=== PATIENT | female | born 1980 | race Caucasian/White ===

== ENCOUNTER → 2021-12-11 12:38 | Outpatient (CLI) | payer OTHER, SELFPAY ==
--- NOTE | ~2021-12-11 | US_ITS ---
EXAMINATION: US pelvic complete DATE: 12/11/2021 12:53 INDICATION: Left lower quadrant pain TECHNIQUE: Multiple transabdominal sonographic images of the pelvis were obtained. COMPARISON: None. FINDINGS: The uterus measures 9.4 x 4.2 x 5.0 cm. The endometrial complex measures 8 mm. The right ov braden measures 3.2 x 2.5 x 2.9 cm. The left ovary measures 3.5 x 2.1 x 1.7 cm. There is normal vascular flow in the ovaries. There is no free fluid in the pelvis. IMPRESSION: 1. No sonographic correlate for the patient's symptoms. Reviewed, dictated and finalized at location B.
== END ==
PROVIDERS: PCP Nurse Practitioner; Visit Provider Nurse Practitioner
DX: R10.2 Pelvic and perineal pain (principal)
CPT/HCPCS: 76856

== ENCOUNTER → 2022-05-11 12:25 | Outpatient (CLI) | payer OTHER, SELFPAY ==
--- NOTE | ~2022-05-11 | MM_ITS ---
EXAMINATION: MM screening reji BI w leyla HISTORY: Screening mammogram TECHNIQUE: Craniocaudal and mediolateral oblique 3-D tomosynthesis images were obtained and synthetic 2-D images were generated. Bilateral rotated lateral CC views. CAD analysis was submitted and interp reted. COMPARISON: No prior mammogram is available for comparison at this institution. BREAST PARENCHYMAL COMPOSITION: The breasts are heterogeneously dense, which may obscure small masses . FINDINGS: There is no evidence of suspicious mass, calcification, or architectural distortion to sugg est malignancy in either breast. There has been no suspicious interval change. IMPRESSION: 1. No mammographic evidence of malignancy. 2. Recommend routine screening mammography in one year. BI-RADS Category 1: Negative Reviewed, dictated and finalized at location A. O BRACER
== END ==
PROVIDERS: PCP Nurse Practitioner; Visit Provider Nurse Practitioner
DX: Z12.31 Encounter for screening mammogram for malignant neoplasm of breast (principal)
CPT/HCPCS: 77063; 77067

== ENCOUNTER 2022-06-29 12:25 | Emergency (ER) | payer OTHER, SELFPAY ==
[2022-06-29 12:41] VITALS: BP 140/85; PULSE 88; RESP 18; TEMP 36.1; O2SAT 100
--- NOTE | 2022-06-29 12:57 | ED.URI ---
HPI - URI/Sore Throat General Chief Complaint: Upper Respiratory Infection Stated Complaint: sinus pressure/pain,hoarse Source: patient Mode of arrival: ambulatory Limitations: no limitations History of Present Illness HPI Narrative: 42-year-old female presents to [facility] with complaints of/pressure, nasal congestion, cough and runny nose for the past week. Patient has been taking [id number] Tylenol, Motrin and Sudafed with minimal relief. Patient reports that her son recently had a double ear infection. Patient denies recent trauma. Patient has shortness of breath, wheezing, nausea, vomiting or diarrhea MD elicited complaint: rhinorrhea, nasal congestion and sinus pain Onset (ago): week(s) (1) Able to tolerate fluids by mouth: Yes Relieving factors: nothing Treatments prior to arrival: acetaminophen, ibuprofen and cold medicine Related Data Allergies Allergy/AdvReac Type Severity Reaction Status Date / Time No Known Allergies Allergy Verified 06/29/22 12:38 Review of Systems Constitutional: Constitutional: Denies chills, Denies fatigue, Denies fever(s) and Denies weakness ENT: Denies vertigo, Denies dizziness, Denies epistaxis, Reports nasal congestion and Reports sore throat Comments: Sinus pressure Cardiovascular: Cardiovascular: Denies chest pain Respiratory: Respiratory: Reports cough, Denies dyspnea and Denies wheezing Gastrointestinal: Gastrointestinal: Denies diarrhea, Denies nausea and Denies vomiting Integumentary/Breasts: Skin/Breast: Denies rash Neurologic: Denies dizziness, Denies syncope and Denies headache(s) PMFSH Comments At time of signature, I agree with nursing past medical, surgical, social and family history. There is no relevant family history pertinent to the presenting complaint. Exam Const: General: healthy appearing and no acute distress Nutritional Appearance: well nourished Orientation/consciousness: patient oriented x3 Limitations: no limitations HENMT: Head: normal to inspection Ears: external ears normal, TM's normal bilaterally and EAC's normal Face/Nose/Sinus: Normal nares present Face and sinus: sinus tenderness frontal Mouth: Yes moist mucous membranes Teeth and gingiva: dentition normal Throat: posterior oropharynx normal and uvula midline Other: Moderate nasal congestion noted Eyes: Conjunctivae: conjunctivae normal Neck: Neck: normal visual inspection Resp: Effort & Inspection: normal respiratory effort and not labored Auscultation: clear to auscultation bilaterally, no crackles, no rales and no rhonchi Cardio: Rate: regular rate Rhythm: regular rhythm Heart sounds: no murmurs Skin: General skin exam: normal color Rashes: no rashes Neuro: General: patient oriented x3 Speech: normal speech Psych: Affect: normal affect Attitude: cooperative Course Course Level of Care: Express Care Visit Vital Signs Vital signs: Vital Signs Temperature 36.1 C L 06/29/22 12:41 Pulse Rate 88 06/29/22 12:41 Respiratory Rate 18 06/29/22 12:41 Blood Pressure 140/85 06/29/22 12:41 Pulse Oximetry 100 06/29/22 12:41 Oxygen Delivery Room Air 06/29/22 12:41 Temperature 36.1 C L 06/29/22 12:41 Pulse Rate 88 06/29/22 12:41 Respiratory Rate 18 06/29/22 12:41 Blood Pressure 140/85 06/29/22 12:41 Pulse Oximetry 100 06/29/22 12:41 Oxygen Delivery Room Air 06/29/22 12:41 MDM - URI/Sore Throat MDM Narrative Medical decision making narrative: Patient agrees to take Flonase daily and Augmentin as prescribed. Instructed patient to alternate Motrin and Tylenol as needed and to follow up with primary care provider if symptoms not improved Differential Diagnosis Differential diagnosis: Likely otitis media, sinusitis and viral infection Critical Care Time Critical Care Time Critical Care Time: No Discharge Plan Discharge Clinical Impression: Sinusitis Patient Disposition: Home, Self-Care Condition: Stable
== END 2022-06-29 12:54 | disposition home or self-care (01) ==
PROVIDERS: Emergency Provider Nurse Practitioner Family
DX: J32.9 Chronic sinusitis, unspecified (principal)
CPT/HCPCS: 99213; G0463

== ENCOUNTER 2023-06-17 09:03 | Emergency (ER) | payer OTHER, SELFPAY ==
[2023-06-17 09:17] VITALS: BP 146/92; PULSE 72; RESP 18; TEMP 36.2; O2SAT 97
--- NOTE | 2023-06-17 09:18 | ED.URI ---
HPI - URI/Sore Throat General Chief Complaint: Upper Respiratory Infection Stated Complaint: sinus congestion and pressure Time Seen by Provider: 06/17/23 09:18 Source: patient Mode of arrival: ambulatory Limitations: no limitations History of Present Illness HPI Narrative: Lila is a 43-year-old female patient presenting to the clinic today with complaints of sinus congestion, dental pain, and left maxillary pressure x6 days. She reports she lost her feeling on Wednesday to the left upper tooth. Reports she is supposed to see the dentist today to have that report repaired MD elicited complaint: sore throat and nasal congestion Related Data Allergies Allergy/AdvReac Type Severity Reaction Status Date / Time No Known Allergies Allergy Verified 06/17/23 09:23 Review of Systems Review of Systems: Pertinent positives per HPI. Patient denies any fever, chills, rash, visual changes, dizziness, cough, shortness of breath, chest pain, palpitations, nausea, vomiting, diarrhea, constipation, abdominal pain, or any urinary issues. PMFSH Past Medical History Medical History (Updated 06/17/23 @ 09:28 by Yannick Navarro APRN) Depression with anxiety Family History Family History (Updated 06/07/23 @ 09:37 by Karina Chauhan PA-C) Father Cancer CLL, 2020 Mother Skin cancer Sibling Depression Grandparent Heart disease Cerebrovascular accident Hypertension Skin cancer Carcinoma of colon Social History Social History (Updated 06/07/23 @ 09:45 by Karina Chauhan PA-C) Smoking status: Former smoker Second hand tobacco smoke exposure: No Smoking end date: 04/19/21 Alcohol intake: current Drinks per week: 10 Alcohol use details: wine daily Substance use: never Substance use type: does not use Do You Feel Safe in your Home?: Yes Lack of Transportation: No Lack of Food: Never True Current Housing: I Have Housing Concerned About Future Housing: No Difficulty Paying Gas/Electric Bills: No Difficulty Paying for Meds: No Living arrangements: alone Gender identity (if verbalized by the patient): Female Sexual Orientation (if Verbalized by the Patient): Straight or Heterosexual Comments At the time of my signature, I reviewed and agree with the nursing past medical, surgical, social, and family history. There is no relevant family history pertinent to the patient complaint. Exam Narrative: General: Well-developed, well nourished, in no apparent distress Head: Normocephalic, atraumatic Eyes: Pupils equally round and reactive to light bilaterally, EOM intact, sclera and conjunctive clear, no discharge, lids normal Ears: TMs intact and congested, ear canals clear, no drainage, grossly hearing normal. Nose: Nares patent, yellow nasal discharge, moderate inflammation, maxilla sinus tenderness. Mouth: Oral pharynx without lesions or masses, poor dentition, MMM. Decayed left #13 tooth with gingival swelling Neck: Supple, trachea midline, no enlargement of anterior or posterior cervical nodes, no thyroid masses or goiter palpable. Cardio: Regular rate and rhythm, s1 and s2 normal, no murmur appreciated. Resp: Clear to auscultation bilaterally, no rhonchi, rales, wheezing or rubs Course Course Emergency Course: Portions of this record may have been created with voice recognition software. Level of Care: Express Care Visit Vital Signs Vital signs: Vital signs reviewed MDM - URI/Sore Throat MDM Narrative Medical decision making narrative: At the time of visit patient is resting comfortably on the exam table. Patient appears to be nontoxic. Plan: I suspect patient has sinusitis/toothache. Prescription for amoxicillin, prednisone, and Diflucan was sent to the pharmacy. Supportive measures were discussed with the patient and they voiced understanding discharge instructions and agrees to treatment plan. Return precautions reviewed Differentia
== END 2023-06-17 09:33 | disposition home or self-care (01) ==
PROVIDERS: Emergency Provider Nurse Practitioner Family; PCP Family Medicine
DX: J01.90 Acute sinusitis, unspecified (principal); K08.89 Other specified disorders of teeth and supporting structures; Z87.891 Personal history of nicotine dependence
CPT/HCPCS: 99213; G0463

== ENCOUNTER 2023-09-06 11:23 | Outpatient (CLI) | payer OTHER, SELFPAY ==
--- NOTE | ~2023-09-06 | MM_ITS ---
EXAMINATION: MM screening reji BI w leyla HISTORY: Screening TECHNIQUE: Craniocaudal and mediolateral oblique 3-D tomosynthesis images were obtained and synthetic 2-D images were generated. CAD analysis was submitted and interpreted. COMPARISON: 05/11/2019 BREAST PARENCHYMAL COMPOSITION: Dense: The breasts are heterogeneously dense, which may obscure small masses FINDINGS: There is no evidence of suspicious mass, calcification, or architectural distortion to sugg est malignancy in either breast. There has been no suspicious interval change. IMPRESSION: 1. No mammographic evidence of malignancy. 2. Recommend routine screening mammography in one year. BI-RADS Category 1: Negative Reviewed, dictated and finalized at location A.
== END 2023-09-06 11:24 ==
LOC: MICIMG 11:24
PROVIDERS: PCP Nurse Practitioner; Visit Provider Nurse Practitioner
DX: Z12.31 Encounter for screening mammogram for malignant neoplasm of breast (principal)
CPT/HCPCS: 77063; 77067

== ENCOUNTER 2023-09-17 14:52 | Emergency (ER) | payer OTHER, SELFPAY ==
[2023-09-17 15:00] VITALS: BP 128/97; PULSE 112; RESP 19; TEMP 37.4; O2SAT 100
--- NOTE | 2023-09-17 15:44 | ED.URI ---
HPI - URI/Sore Throat General Chief Complaint: Upper Respiratory Infection Stated Complaint: Sore Throat Time Seen by Provider: 09/17/23 15:22 Source: patient and RN notes reviewed Mode of arrival: ambulatory Limitations: no limitations History of Present Illness HPI Narrative: Patient presents today complaining of 3 day history of sore throat that is a since onset. She reports today that she is having some difficulty swallowing food while eating. Still able to swallow fluids, both with increased pain. She currently rates her pain 8/10. She took a dose of Tylenol cold and flu this morning at 8:30 a.m., but nothing since then. Denies any additional symptoms to include congestion, rhinorrhea, cough, fever Related Data Home Medications Medication Instructions Recorded Confirmed No Home Medications 09/17/23 09/17/23 Allergies Allergy/AdvReac Type Severity Reaction Status Date / Time No Known Allergies Allergy Verified 09/17/23 15:26 Review of Systems Review of Systems: CONSTITUTIONAL: Denies body aches, fever, chills, or sweats. EYES: Denies visual changes, redness, or discharge. ENT: Denies rhinorrhea, congestion, or otalgia.+ sore throat, difficulty swallowing food CARDIOVASCULAR: Denies chest pain, palpitations, or edema. RESPIRATORY: Denies cough or dyspnea. GASTROINTESTINAL: Denies abdominal pain, nausea, vomiting, or diarrhea. GENITOURINARY: Denies dysuria or hematuria. SKIN: Denies rash, itching, or wounds. MUSCULOSKELETAL: Denies back pain, joint pain, or myalgia. NEUROLOGIC: Denies headache, numbness, tingling, or weakness. PSYCH: Denies depression or anxiety. [facility] Past Medical History Medical History Depression with anxiety Family History Family History Father Cancer CLL, 2020 Mother Skin cancer Sibling Depression Grandparent Heart disease Cerebrovascular accident Hypertension Skin cancer Carcinoma of colon Social History Social History Smoking status: Former smoker Second hand tobacco smoke exposure: No Smoking end date: 04/19/21 Alcohol intake: current Drinks per week: 10 Alcohol use details: wine daily Substance use: never Substance use type: does not use Do You Feel Safe in your Home?: Yes Lack of Transportation: No Lack of Food: Never True Current Housing: I Have Housing Concerned About Future Housing: No Difficulty Paying Gas/Electric Bills: No Difficulty Paying for Meds: No Living arrangements: alone Gender identity (if verbalized by the patient): Female Sexual Orientation (if Verbalized by the Patient): Straight or Heterosexual Comments At time of signature, I have reviewed and agree with nursing past medical, surgical, social and family history unless otherwise noted. Please see nursing chart for further information. There is no relevant family history pertinent to the presenting complaint Exam Narrative: GENERAL: Well-appearing, well-nourished, and in no acute distress. HEAD: Normocephalic, atraumatic. EYES: EOMI. No redness or drainage. Conjunctivae normal. ENT: Mucous membranes pink and moist. Nares clear. No rhinorrhea. TMs normal bilaterally. Throat erythematous. Tonsils edematous, right greater than left. She does have some swelling of the right-sided soft palate as well. No exudate noted NECK: Normal AROM. Supple. CHEST: No respiratory distress. Clear to auscultation. HEART: Regular rate and rhythm. No murmur appreciated. EXTREMITIES: Normal range of motion. No edema. SKIN: Warm, dry, no rash. Capillary refill normal. Normal skin turgor. NEURO: No focal deficits. Alert and oriented x3. Gait steady. PSYCH: Normal affect. No signs of depression or anxiety. Course Course Level of Care: Express Care Vi
== END 2023-09-17 15:45 | disposition short-term general hospital (02) ==
PROVIDERS: Emergency Provider Nurse Practitioner
DX: J02.0 Streptococcal pharyngitis (principal); R13.10 Dysphagia, unspecified; Z87.891 Personal history of nicotine dependence
CPT/HCPCS: 87880; 99212; G0463

== ENCOUNTER 2023-09-17 16:42 | Emergency (ER) | payer OTHER, SELFPAY ==
--- NOTE | ~2023-09-17 | CT_ITS ---
EXAMINATION: CT soft tissue neck w con DATE: 09/17/2023 18:01 INDICATION: TECHNIQUE: Computed tomography (CT) of the neck was performed with 75 mL Omnipaque-350 intravenous co ntrast. The dose-length product was 412.60 mGy-cm. COMPARISON: None FINDINGS: Soft tissue swelling involving the right palatine tonsil and posterior right oropharyngeal soft tissu es with an associated 1.5 cm hypodensity with surrounding enhancement. The thyroid gland is unremark able. Slight enlargement of the right submandibular gland. Symmetric parotid glands. Enlarged uppe r anterior right cervical chain lymph nodes. The superior mediastinum is unremarkable. The airway is unremarkable. Parapharyngeal and pre-glottic fat planes are preserved. Normally enhancing neck v essels. Right maxillary retention cyst/polyp and mucosal thickening, the remaining aerated spaces a re clear.Visualized lung parenchyma is clear. No significant osseous abnormality. IMPRESSION: Right palatine tonsillar and posterior right oropharyngeal soft tissue swelling with associated 1.5 c m tonsillar or peritonsillar abscess. Right upper anterior cervical lymphadenopathy. Reviewed, dictated and finalized at location K. IMPRESSION: Right palatine tonsillar and posterior right oropharyngeal soft tissue swelling with associated 1.5 cm tonsillar or peritonsillar abscess. Right upper anterior cervical lymphadenopathy.
[2023-09-17 16:44] VITALS: BP 168/86; PULSE 100; RESP 20; TEMP 36.9; O2SAT 100
--- NOTE | 2023-09-17 17:26 | ED.GENADULT ---
HPI - General Adult General Chief complaint: Unspecified Stated complaint: peritonsillar abscess Time Seen by Provider: 09/17/23 17:05 Source: patient Mode of arrival: ambulatory Limitations: no limitations History of Present Illness HPI narrative: This is a 43-year-old female who presents to the ED with chief complaint sore throat x2 days. She was referred over from urgent care today for likely a peritonsillar abscess. She had positive strep test there. Patient reports that swallowing foods is quite difficult and painful. She can swallow liquids but states that she has been swallowing some increased oral secretions. Denies any known fevers. Denies nausea, vomiting, shortness of breath, cough, chest pain, headache. Related Data Allergies Allergy/AdvReac Type Severity Reaction Status Date / Time No Known Allergies Allergy Verified 09/17/23 15:26 Review of Systems Review of Systems: All systems as dictated in [facility] Past Medical History Medical History Depression with anxiety Family History Family History Father Cancer CLL, 2020 Mother Skin cancer Sibling Depression Grandparent Heart disease Cerebrovascular accident Hypertension Skin cancer Carcinoma of colon Social History Social History Smoking status: Former smoker Second hand tobacco smoke exposure: No Smoking end date: 04/19/21 Alcohol intake: current Drinks per week: 10 Alcohol use details: wine daily Substance use: never Substance use type: does not use Do You Feel Safe in your Home?: Yes Lack of Transportation: No Lack of Food: Never True Current Housing: I Have Housing Concerned About Future Housing: No Difficulty Paying Gas/Electric Bills: No Difficulty Paying for Meds: No Living arrangements: alone Gender identity (if verbalized by the patient): Female Sexual Orientation (if Verbalized by the Patient): Straight or Heterosexual Exam Narrative: GENERAL: Well-appearing, well-nourished, and in no acute distress. HEAD: Normocephalic, atraumatic. EYES: PERRLA and EOMI. ENT: Significant right tonsillar swelling and erythema with uvula deviation to the left. Muffled voice. Tolerating secretions. Airway intact. Nares clear, no rhinorrhea or epistaxis. Mucous membranes moist. Tenderness to the right side of the neck. NECK: Supple. No adenopathy or masses. CHEST: No respiratory distress. Clear to auscultation. No wheezes rales or rhonchi HEART: Regular rate and rhythm. No murmur heard. Normal peripheral pulses. ABDOMEN: Soft, nontender, nondistended, normal active bowel sounds. MSK: Normal range of motion. No edema. SKIN: Warm, dry, no rash. NEURO: Alert and oriented x3. No focal deficits. PSYCH: Normal mood and affect. Course Reevaluation(s) Reevaluation #1: Patient is feeling much improved overall. I discussed the conversation I had with [facility] ENT. She does prefer to go home if able to. I did offer for transfer for admission if she is feeling unwell and preferred to stay in the hospital. She is understanding of this, however feels that she is able to swallow better now and would do well at home. She would feel comfortable going home with strict return precautions. Date: 09/17/23 Time: 19:31 Consultations Consultation #1: Spoke with Dr. Morrow (ENT, [facility]): We discussed the imaging results and laboratory results. Based on patient's presentation, he feels that the patient is stable enough to go home on oral antibiotics. He would recommend Augmentin times 10 days. States that if the patient is feeling uncomfortable with plan for going home that they will discuss admitting to [facility] hospital. Date: 09/17/23 Time: 19:15 Vital Signs Vital signs: Vital Signs Temperature 98.5 F
[2023-09-17 17:56] LABS: Estimated CRCL calculation 96 ml/min; Estimated Glomerular Filt Rate > 60
[2023-09-17] MEDS: SODIUM CHLORIDE 0.9% IV 1,000 ML 999 ML IV CONT (18:02)
[2023-09-17 18:03] LABS: Basophils Absolute Auto 0.1 K/mm3 (0.0-0.1); Basophils Percent Auto 0.4 % (0.2-1.2); Eosinophils Absolute Auto 0.1 K/mm3 (0-0.3); Eosinophils Percent Auto 0.4 % (0-4.4); Hematocrit 45.9 % (37.0-47.0); Hemoglobin 15.7 g/dL (12.0-15.0); Immature Granulocyte Absolute 0.05 K/mm3 (0.00-0.031); Immature Granulocyte Percent A 0.4 % (0-0.5); Lymphocytes Absolute Auto 1.46 K/mm3 (0.9-3.2); Lymphocytes Percent Auto 10.3 % (18.3-44.2); Mean Corpuscular HGB Conc 34.2 g/dl (32-36); Mean Corpuscular Hemoglobin 33.1 pg (26-34); Mean Corpuscular Volume 96.6 fl (80-100); Mean Platelet Volume 11.4 fl (7.4-10.4); Monocytes Absolute Auto 1.1 K/mm3 (0.1-0.6); Monocytes Percent Auto 7.5 % (2.6-8.5); Neutrophils Absolute Auto 11.5 K/mm3 (1.3-6.7); Platelet Count Result 210 k/mm3 (150-375); Red Blood Count 4.75 M/mm3 (4.2-5.4); Red Cell Distribution Width 11.9 % (11.5-14.5); White Blood Count 14.2 K/mm3 (4.5-10.0)
[2023-09-17] MEDS: AMPICILLIN SULB 3 GM/NS 100 ML 3 GM/100 ML VIAL IVPB (18:03)
[2023-09-17] MEDS: KETOROLAC 15 MG/ML VIAL (*BKC) IV PUSH (18:03)
[2023-09-17] MEDS: methylPREDNISolone SOD SUCC 125 MG VIAL IV PUSH (18:03)
[2023-09-17 18:17] LABS: Alanine Aminotransferase 20 U/L (6-35); Albumin Level 5.1 g/dL (3.5-5.1); Alkaline Phosphatase 92 U/L (38-126); Anion Gap 12 mmol/L (4-12); Aspartate Amino Transferase 28 U/L (14-36); Blood Urea Nitrogen 10 mg/dL (7-17); CRP 4.1 mg/dL (<1.0); Calcium 10.2 mg/dL (8.4-10.2); Carbon Dioxide 21 mmol/L (22-30); Chloride 103 mmol/L (98-107); Estimated CRCL calculation 110 ml/min; Estimated Glomerular Filt Rate > 60; Glucose 86 mg/dL (65-110); Potassium 3.7 mmol/L (3.4-5.0); Sodium 136 mmol/L (137-145)
[2023-09-17 18:51] VITALS: BP 149/86; PULSE 98; RESP 16; O2SAT 98
== END 2023-09-17 19:52 | disposition home or self-care (01) ==
PROVIDERS: Emergency Provider Physician Assistant
DX: J36 Peritonsillar abscess (principal); Z87.891 Personal history of nicotine dependence
CPT/HCPCS: 36415; 70491; 80053; 85025; 86140; 87880; 96365; 96366; 96375; 99284; J0295; J1885; J2919; J7030; Q9967

== ENCOUNTER 2023-12-14 09:19 | Emergency (ER) | payer OTHER, SELFPAY ==
[2023-12-14 09:37] VITALS: BP 137/87; PULSE 88; RESP 16; TEMP 36.6; O2SAT 100
--- NOTE | 2023-12-14 09:58 | ED.URI ---
HPI - URI/Sore Throat General Chief Complaint: Upper Respiratory Infection Stated Complaint: sore throat Time Seen by Provider: 12/14/23 09:58 Source: patient, RN notes reviewed and old records reviewed Mode of arrival: ambulatory Limitations: no limitations History of Present Illness HPI Narrative: 43-year-old female presents to the [facility] with complaints of a sore throat. Patient reports waking up this morning with laryngitis and a sore throat. No treatment prior to arrival Onset (ago): hour(s) (3) Treatments prior to arrival: none Related Data Home Medications Medication Instructions Recorded Confirmed No Home Medications 12/14/23 12/14/23 Allergies Allergy/AdvReac Type Severity Reaction Status Date / Time No Known Allergies Allergy Verified 12/14/23 09:35 Review of Systems Review of Systems: All systems reviewed & are unremarkable except as noted in HPI and below Constitutional: Constitutional: Reports no additional constitutional complaints Eyes: Eyes: Reports no additional eye complaints ENT: Reports as per HPI and Reports sore throat Cardiovascular: Cardiovascular: Reports no additional cardiovascular complaints, Denies chest pain and Denies dyspnea Respiratory: Respiratory: Reports no additional respiratory complaints, Denies chest congestion, Denies cough and Denies dyspnea Gastrointestinal: Gastrointestinal: Reports no additional gastrointestinal complaints, Denies abdominal pain, Denies nausea and Denies vomiting Musculoskeletal: Musculoskeletal: Reports no additional musculoskeletal complaints Integumentary/Breasts: Skin/Breast: Reports system reviewed and no additional complaints, except as docu Neurologic: Reports system reviewed and no additional complaints, except as documented Psychiatric: Psychiatric: Reports no additional psychiatric complaints Allergic/Immunologic: Allergic/Immunologic: Reports no additional allergic/immunologic complaints PMFSH Past Medical History Medical History Depression with anxiety Family History Family History Father Cancer CLL, 2020 Mother Skin cancer Sibling Depression Grandparent Heart disease Cerebrovascular accident Hypertension Skin cancer Carcinoma of colon Social History Social History Smoking status: Former smoker Second hand tobacco smoke exposure: No Smoking end date: 04/19/21 Alcohol intake: current Drinks per week: 10 Alcohol use details: wine daily Substance use: never Substance use type: does not use Do You Feel Safe in your Home?: Yes Lack of Transportation: No Lack of Food: Never True Current Housing: I Have Housing Concerned About Future Housing: No Difficulty Paying Gas/Electric Bills: No Difficulty Paying for Meds: No Living arrangements: alone Gender identity (if verbalized by the patient): Female Sexual Orientation (if Verbalized by the Patient): Straight or Heterosexual Comments At the time of my signature, I reviewed and agree with the nursing past medical, surgical, social, and family history. There is no relevant family history pertinent to the patient complaint. Exam Const: General: cooperative, healthy appearing, comfortable, no acute distress, well developed, alert and well nourished Nutritional Appearance: well nourished Orientation/consciousness: patient oriented x3 Limitations: no limitations HENMT: Head: normal to inspection Ears: hearing grossly normal bilaterally, external ears normal, TM's normal bilaterally, EAC's normal, mastoids normal and no periauricular adenopathy Face/Nose/Sinus: Normal external nose present, Normal nares present, Normal nasal mucous membranes and turbinates present, normal facial exam and face symmetric Face and sinus: normal facial exam and face sy
[2023-12-14 10:12] LABS: EDSTREPNEGPOS1 Negative
== END 2023-12-14 10:11 | disposition home or self-care (01) ==
PROVIDERS: Emergency Provider Nurse Practitioner
DX: J02.9 Acute pharyngitis, unspecified (principal); Z87.891 Personal history of nicotine dependence
CPT/HCPCS: 87081; 87880; 99213; G0463

== ENCOUNTER 2024-10-19 16:19 | Emergency (ER) | payer OTHER, SELFPAY ==
--- NOTE | ~2024-10-19 | CT_ITS ---
EXAMINATION: CT brain wo con DATE: 10/19/2024 16:59 INDICATION: Headache. Syncope. TECHNIQUE: Computed tomography (CT) of the head was performed without intravenous contrast. Sagittal and coronal reconstructions were performed. The mA was adjusted according to patient size. Iterative reconstruction technique was employed. The dose-length product was 605.33 mGy-cm. COMPARISON: None FINDINGS: No acute intracranial hemorrhage, acute infarction or abnormal extra axial fluid collection. Ventricl es are normal and symmetric. No mass/mass effect. The orbits, paranasal sinuses and mastoid air cells are normal. IMPRESSION: 1. Normal head CT. Reviewed, dictated and finalized at location B. IMPRESSION: 1. Normal head CT.
--- NOTE | ~2024-10-19 | XR_ITS ---
CHEST RADIOGRAPH, PA AND LATERAL CLINICAL HISTORY: syncopy . COMPARISON: None TECHNIQUE: PA and lateral views of the chest. FINDINGS The cardiomediastinal silhouette is unremarkable. The lungs are clear. IMPRESSION: No focal infiltrate or effusion. Reviewed, dictated and finalized at location A.
--- NOTE | 2024-10-19 16:24 | ECG_ITS ---
Test Date: 2024-10-19 16:44:49 Measurements Intervals [place] Rate: 74 P: 48 AK: 148 QRS: 48 QRSD: 90 T: 61 QT: 379 QTc: 421 Interpretive Statements SINUS RHYTHM No previous ECG available for comparison Electronically Signed On 10-19-2024 16:55:33 CDT by Sharon Castellon
[2024-10-19 16:25] VITALS: BP 140/86; PULSE 84; RESP 16; TEMP 36.8; O2SAT 98
[2024-10-19 16:32] VITALS: PULSE 84
[2024-10-19 16:45] VITALS: BP 141/76; PULSE 81; RESP 16; O2SAT 100
[2024-10-19 17:30] LABS: Hematocrit 44.0 % (37.0-47.0); Hemoglobin 14.7 g/dL (12.0-15.0); Immature Granulocyte Percent A 0.3 % (0-0.5); Lymphocytes Absolute Auto 1.05 K/mm3 (0.9-3.2); Mean Corpuscular HGB Conc 33.4 g/dl (32-36); Mean Corpuscular Hemoglobin 32.6 pg (26-34); Mean Corpuscular Volume 97.6 fl (80-100); Nucleated Red Blood Cells Absolute Auto 0.000 K/mm3 (0.0-0.012); Nucleated Red Blood Cells Perc 0.0 % (0.0-0.2); Platelet Count Result 221 k/mm3 (150-375); Red Blood Count 4.51 M/mm3 (4.2-5.4); White Blood Count 10.1 K/mm3 (4.5-10.0)
[2024-10-19 17:42] LABS: Alanine Aminotransferase 30 U/L (6-35); Albumin Level 4.9 g/dL (3.5-5.1); Alkaline Phosphatase 63 U/L (38-126); Anion Gap 11 mmol/L (4-12); Aspartate Amino Transferase 47 U/L (14-36); Bilirubin,Total 1.0 mg/dL (0.2-1.3); Blood Urea Nitrogen 11 mg/dL (7-17); Calcium 9.3 mg/dL (8.4-10.2); Carbon Dioxide 22 mmol/L (22-30); Chloride 101 mmol/L (98-107); Estimated CRCL calculation 92 ml/min; Estimated Glomerular Filt Rate > 60; Glucose 85 mg/dL (65-110); Potassium 3.3 mmol/L (3.4-5.0); Sodium 134 mmol/L (137-145); Total Protein 8.4 g/dL (6.3-8.2)
[2024-10-19 18:00] VITALS: BP 145/83; PULSE 75; RESP 16; O2SAT 100
[2024-10-19 18:43] LABS: BEDSIDEPREGUCG Negative (Negative)
[2024-10-19 18:45] VITALS: BP 145/73; PULSE 76; RESP 16; O2SAT 100
[2024-10-19] MEDS: ACETAMINOPHEN 500 MG TABLET 1000 MG PO (20:45)
[2024-10-19] MEDS: IBUPROFEN 600 MG TABLET PO (20:45)
[2024-10-19] MEDS: LIDOCAINE 5% PATCH 1 PATCH TRANSDERM (20:46)
[2024-10-19] MEDS: oxyCODONE HCL (*CRX) 2.5 MG TAB IR PO (20:46)
--- NOTE | 2024-10-19 20:53 | ED_ITS ---
HPI - Syncope General Chief Complaint: Syncope Stated Complaint: syncope Time Seen by Provider: 10/19/24 19:35 History of Present Illness HPI narrative: 44-year-old otherwise healthy female presenting to the emergency department after potential seizure activity at a grocery store. She was otherwise in her normal state of health but felt odd while she was walking to the grocery store and felt like her vision was going to give out and then she fell to the ground with bystanders reporting seizure-like activity. Lasted for several seconds and she had a prolonged postictal phase approximately 30 minutes before waking up back to her normal baseline self. No history of seizures in the past, no trauma preceding the seizure, no recent illnesses. She states she was going better day normally and was swimming earlier this afternoon without any difficulty. No history of febrile seizures in childhood. She is asymptomatic at this time aside from some right-sided chest discomfort as well as a headache. She has no tongue lesions or bites. Does not take any prescription medications aside for her antidepressants which have not changed recently. No drinking or drug use. She was otherwise healthy. Related Data Allergies Allergy/AdvReac Type Severity Reaction Status Date / Time No Known Allergies Allergy Verified 10/19/24 16:39 Review of Systems 2 Review of Systems: As reviewed above in HPI [facility] Past Medical History Medical History Depression with anxiety Family History Family History Father Cancer CLL, 2020 Mother Skin cancer Sibling Depression Grandparent Heart disease Cerebrovascular accident Hypertension Skin cancer Carcinoma of colon Social History Social History Smoking status: Former smoker Second hand tobacco smoke exposure: No Smoking end date: 04/19/21 Alcohol intake: current Drinks per week: 10 Alcohol use details: wine daily Substance use: never Substance use type: does not use Do You Feel Safe in your Home?: Yes Lack of Transportation: No Lack of Food: Never True Current Housing: I Have Housing Concerned About Future Housing: No Difficulty Paying Gas/Electric Bills: No Difficulty Paying for Meds: No Living arrangements: alone Gender identity (if verbalized by the patient): Female Sexual Orientation (if Verbalized by the Patient): Straight or Heterosexual Exam 2 Narrative: GENERAL: [Well-appearing, well-nourished, and in no acute distress.] HEAD: [Normocephalic, atraumatic.] EYES: [PERRLA and EOMI.] ENT: Nares clear, no rhinorrhea or epistaxis. Mucous membranes moist. NECK: Supple. CHEST: [Clear to auscultation. No respiratory distress.] HEART: [Regular rate and rhythm]. No murmur heard. [Normal peripheral pulses.] ABDOMEN: [Soft, nondistended], [nontender], [No rigidity or guarding] EXTREMITIES: Normal range of motion. [No edema.] SKIN: Warm, dry, no rash. NEURO: [No focal deficits]. Alert and oriented [x3.] PSYCH: [Normal mood and affect.] Course Vital Signs Vital signs: Vital Signs Temperature 36.8 C 10/19/24 16:25 Pulse Rate 84 10/19/24 16:25 Respiratory Rate 16 10/19/24 16:25 Blood Pressure 140/86 10/19/24 16:25 Pulse Oximetry 98 10/19/24 16:25 Temperature 36.8 C 10/19/24 16:25 Pulse Rate 74 10/19/24 21:22 Respiratory Rate 16 10/19/24 21:22 Blood Pressure 144/72 H 10/19/24 21:22 Pulse Oximetry 100 10/19/24 21:22 MDM - Syncope MDM Narrative Medical decision making narrative: 44-year-old female presenting after suspected seizure. She has no history of seizures no history of febrile seizures in childhood. Historically she has elements that are consistent with seizure today even though she has no history of it. She was walking in a grocery store when she felt an aura proceeded by headache and loss of consciousness with shaking. She had 30 minutes of generalized confusion and malaise before becoming back to normal self. No trauma or injury but she is complain of some right-sided chest discomfort potentially from falling to the ground. No blood thinner use. No fevers. She was otherwise healthy. She is unremarkable set of vitals here without any significant blood pressure concerns, tachycardia, fever, hypoxia. She has an unremarkable neurological assessment. Potential other causes such as the syncope, vasovagal event, orthostatic event less likely given the postictal phase and confusion report afterwards per potentially hit her head and have a concussion or intraparenchymal process or bleed possible as well. Workup was ordered including a CT of the head, chest x-ray, test, CBC, CMP, EKG. She was given Tylenol for analgesia prior to imaging and then afterwards was given Motrin, lidocaine patch, oxycodone. Workup shows no significant leukocytosis or anemia. Normal platelet count. Electrolytes are largely unremarkable aside from some minor hypokalemia 3.3 but not significant this is just below normal. Normal creatinine, normal LFTs. No anion gap or acidosis noted. LFTs largely unremarkable. test negative. Chest x-ray with no infiltrate or effusion. CT of the head without any findings. EKG shows sinus rhythm without any ectopy or dysrhythmia. Patient's potential seizure activity occurred at about 330-345pm. and she has been observed here for numerous hours in the emergency depart without any recurrent syncope or seizure-like activity. I discussed the potential causes of her presentation and I am concerned that she did have a seizure today for the 1st time. We counseled her on next steps including outpatient neurology evaluation and starting her on any antiepileptic medication here as we do not have a neurologist to see here in the ED. patient was comfortable starting medication and we discussed Keppra without side effect profile being minimal and will have her establish with Neurology outpatient. She was also given strict return precautions, told not to drive until cleared by Neurology or 6 months seizure-free and to return if she has any recurrent episodes or any new or worsening concerns. Patient and family were very comfortable with this plan as she has been seizure-free for the duration of her time here in the emergency department. She was given 500 mg p.o. Keppra home be discharged with that twice a day until seen by Neurology. Medical Records Attestation: I reviewed the patient's medical records. Lab Data Attestation: I reviewed the patient's lab results. 10/19/24 17:23 10/19/24 17:23 Labs: Lab Results 10/19/24 10/19/24 Range/Units 17:23 18:00 WBC 10.1 H (4.5-10.0) K/mm3 RBC 4.51 (4.2-5.4) M/mm3 Hgb 14.7 (12.0-15.0) g/dL Hct 44.0 (37.0-47.0) % MCV 97.6 (80-100) fl MCH 32.6 (26-34) pg MCHC 33.4 (32-36) g/dl RDW 12.4 (11.5-14.5) % Plt Count 221 (150-375) k/mm3 MPV 11.0 H (7.4-10.4) fl Immature Gran % (Auto) 0.3 (0-0.5) % Neut % (Auto) 82.9 H (45.5-73.1) % Lymph % (Auto) 10.4 L (18.3-44.2) % Clare % (Auto) 5.3 (2.6-8.5) % Eos % (Auto) 0.6 (0-4.4) % Baso % (Auto) 0.5 (0.2-1.2) % Lymph # (Auto) 1.05 (0.9-3.2) K/mm3 Clare # (Auto) 0.5 (0.1-0.6) K/mm3 Eos # (Auto) 0.1 (0-0.3) K/mm3 Baso # (Auto) 0.1 (0.0-0.1) K/mm3 Abs Immat Gran (auto) 0.03 (0.00-0.031) K/mm3 Absolute Neuts (auto) 8.4 H (1.3-6.7) K/mm3 Absolute Nucleated RBC 0.000 (0.0-0.012) K/mm3 Nucleated RBC % 0.0 (0.0-0.2) % Sodium 134 L (137-145) mmol/L Potassium 3.3 L (3.4-5.0) mmol/L Chloride 101 (98-107) mmol/L Carbon Dioxide 22 (22-30) mmol/L Anion Gap 11 (4-12) mmol/L BUN 11 (7-17) mg/dL Creatinine 0.65 L (0.7-1.0) mg/dL Estim Creat Clear Calc 92 ml/min Estimated GFR > 60 (59 - ) Glucose 85 (65-110) mg/dL Calcium 9.3 (8.4-10.2) mg/dL Total Bilirubin 1.0 (0.2-1.3) mg/dL AST 47 H (14-36) U/L ALT 30 (6-35) U/L Alkaline Phosphatase 63 (38-126) U/L Total Protein 8.4 H (6.3-8.2) g/dL Albumin 4.9 (3.5-5.1) g/dL POC Urine HCG, Qual Negative (Negative) Imaging Data Attestation: I personally reviewed and interpreted this imaging study as follows: My impression: Impressions Head CT 10/19/24 17:04 IMPRESSION: 1. Normal head CT. Chest X-Ray 10/19/24 17:09 IMPRESSION: No focal infiltrate or effusion. Discharge Plan Discharge Clinical Impression: Seizure-like activity, Syncope, Contusion of rib on right side Patient Disposition: Home Condition: Stable Instructions: Antibiotic Form, Syncope (ED), New-Onset Seizure in Adults (ED) Additional Instructions: We suspect that your syncopal episode today was secondary to a potential seizure. This was refer seizure in adulthood and we will start you on an antiepileptic medication to be taken twice daily to help control them from reoccurring. You do need to see a neurologist on outpatient basis and please contact the 1 provided above. If you experience any recurrent episodes, new worsening symptoms or any other issues please return to the emergency department at that time. Do not drive or operate heavy machinery until being cleared by Neurology or least 6 months seizure-free. Take Tylenol and ibuprofen and we will send you home with oxycodone and lidocaine patches for the rib contusions without any rib fractures. No appreciable findings on your workup today as a source for the potential seizure activity but given historical features we will be precautions and start you on Keppra/levetiracetam 500mg twice daily for seizures. Patient Language: Spanish Prescriptions: New levetiracetam [Keppra] 500 mg tablet 500 mg PO BID Qty: 60 0RF lidocaine 5 % adhesive patch,medicated 1 patch topical DAILY Qty: 15 0RF Rx Instructions: leave on most painful area for up to 12 hrs ibuprofen 600 mg tablet 600 mg PO TID PRN (Reason: pain) Qty: 20 0RF oxycodone 5 mg tablet 5 mg PO Q8H PRN (Reason: pain) Qty: 10 0RF acetaminophen [Tylenol Extra Strength] 500 mg tablet 1,000 mg PO TID PRN (Reason: pain) Qty: 30 0RF Follow-up/Referrals: Xavi Vega MD [Physician] - 3 Days (New-onset seizure) UNKNOWN,DOCTOR [Primary Care Provider] - Time of Disposition: 21:03
[2024-10-19 21:22] VITALS: BP 144/72; PULSE 74; RESP 16; O2SAT 100
== END 2024-10-19 21:23 | disposition home or self-care (01) ==
PROVIDERS: Emergency Medicine; Emergency Provider Student in an Organized Health Care Education/Training Program
DX: R56.9 Unspecified convulsions (principal); R55 Syncope and collapse; S20.211A Contusion of right front wall of thorax, initial encounter; W18.39XA Other fall on same level, initial encounter
CPT/HCPCS: 36415; 70450; 71046; 80053; 81025; 85025; 93005; 99284; A9270

== ENCOUNTER 2024-11-14 12:22 | Outpatient (CLI) | payer OTHER, SELFPAY ==
--- NOTE | 2024-11-14 15:16 | WPDNEUROLOGY ---
Neurology EEG Report General Information Date of Study: 11/14/24 TEST EEG DIAGNOSIS Syncopal episode 3 CONDITION OF RECORDING awake ,drowsy and asleep. EEG NUMBER [id number] CLINICAL HISTORY 44 years old has been admitted to the hospital for syncopal episodes reportedly she had been drinking the night before and in the heat all day of episode. She was in the grocery store a child when she had a rule he is feeling and her vision became blurry. And fell shortly after and lost consciousness. She had loss of memory for about 20minutes where she was talking in answering most questions correctly. She is not aware of long she had lost consciousness. EEG DESCRIPTION Low-voltage 15 to 18 hertz per 2nd beta activity seen diffusely admixed with brief periods of low-voltage 11 to 13 hertz per 2nd alpha posteriorly. Hyperventilation produced with the Power buildup. Bilateral symmetrical sleep activity is noted with symmetrical sleep spindles. Non paroxysmal. Nonfocal. Nonlateralizing. IMPRESSION No significant abnormalities noted in this particular tracing. Clinical correlation recommended as normal EEG does not rule out the possibility of seizures.
== END 2024-11-14 12:23 | disposition home or self-care (01) ==
PROVIDERS: Visit Provider Psychiatry & Neurology Neurology
DX: Z87.828 Personal history of other (healed) physical injury and trauma (principal)
CPT/HCPCS: 95816

== ENCOUNTER 2024-12-06 09:42 | Outpatient (CLI) | payer OTHER, SELFPAY ==
--- NOTE | ~2024-12-06 | MR_ITS ---
EXAMINATION: MR brain/brain stem wo/w con DATE: 12/06/2024 10:38 INDICATION: Multiple sclerosis TECHNIQUE: Magnetic resonance imaging (MRI) of the brain and brainstem was performed without and with 14 mL Multihance intravenous contrast. Sequences included sagittal and axial T1-weighted FLAIR, axial T1-weighted FSE, axial diffusion-weighted FS EPI, sagittal T2-weighted FLAIR, axial 3D SWAN, axial T2- weighted FLAIR Propeller, and axial T2-weighted Propeller. Postcontrast sequences included axial, coronal, and sagittal T1-weighted FSE. Apparent diffusion coefficient (ADC) maps were created. COMPARISON: Head CT dated 10/19/2024 FINDINGS: There are no areas of restricted diffusion to suggest acute infarction. No intracranial hemorrhage. There are 2 lesions of increased T2-weighted signal intensity in the brain. One of these lesions located at the head of the left caudate nucleus and the second in the posterior left temporal periventricular white matter, also with corresponding decreased T1 signal. Neither of the lesions enhance. There are no lesions infratentorial lesions. In addition there is a 6 x 6 x 4 mm T2 hyperintense and enhancing extra-axial lesion with contiguous enhancing dural tail overlying the left frontal lobe most consistent with a small meningioma. There are no intraparenchymal signal abnormalities seen on the other pulse sequences. The ventricles are symmetric and normal in size. There are no abnormal extra-axial fluid collections. Flow voids are seen in the cerebral arteries on the T2-weighted sequences consistent with their expected patency. Mild mucosal thickening bilateral ethmoid sinuses. Visualized orbits a nd soft tissues are unremarkable. IMPRESSION: 1. 2 nonspecific T2 hyperintense lesions without enhancement, one at the left caudate nucleus and the second in the left temporal lobe which is within normal limits for age but for which differential would include multiple sclerosis. 2. 6 x 6 x 4 mm enhancing extra-axial likely from overlying the left frontal lobe. 3. Otherwise normal brain with no acute intracranial process. Reviewed, dictated and finalized at location A. IMPRESSION: 1. 2 nonspecific T2 hyperintense lesions without enhancement, one at the left c audate nucleus and the second in the left temporal lobe which is within normal limits for age but for which differential would include multiple sclerosis. 2. 6 x 6 x 4 mm enhancing extra-axial likely from overlying the left frontal lo be. 3. Otherwise normal brain with no acute intracranial process.
== END 2024-12-06 09:43 | disposition home or self-care (01) ==
PROVIDERS: PCP Family Medicine; Visit Provider Psychiatry & Neurology Neurology
DX: G35 Multiple sclerosis (principal)
CPT/HCPCS: 70553; A9577

== ENCOUNTER 2024-12-20 09:46 | Outpatient (CLI) | payer OTHER, SELFPAY ==
--- NOTE | 2024-12-20 09:57 | ECHO_ITS ---
Patient Info Name: Lila Lay Age: 44 years : 1980 Gender: Female Ht: 71 in Wt: 150 lbs BSA: 1.84 m2 HR: 68 bpm BP: 133 / 88 mmHg Technical Quality: Good Exam Date: 12/20/2024 10:22 AM Patient Status: O Admit Date: 12/20/2024 Exam Type: CA echo doppler w bubble study Complete two-dimensional, color flow and Doppler transthoracic echocardiogram is performed with agitated saline. [employer]: Daria Sheriff Attending Provider: Maria Fernanda Hollingsworth Contrast/Agitated Saline Contrast/Ag. Saline: Agitated Saline Amount: 12.00 ml IV Access Condition: patent with no signs of infiltration New IV Access: Left Site Condition: IV removed Summary 1. Left ventricular chamber dimension is normal. 2. Left ventricular systolic function is normal, estimated at 60-65. 3. The left ventricular diastolic function is grade I diastolic dysfunction. 4. E/e' 9 is minimally elevated. 5. There is mild mitral valve regurgitation. 6. There is mild tricuspid valve regurgitation. 7. No pulmonary hypertension, estimated pulmonary arterial systolic pressure is 27 mmHg. Left Ventricle E/e' 9 is minimally elevated. Left ventricular chamber dimension is normal. Left ventricular systolic function is normal, estimated at 60-65. The left ventricular diastolic function is grade I diastolic dysfunction. Right Ventricle Right ventricular chamber dimension is normal. Right ventricular systolic function is normal. Left Atria Left atrial chamber dimension is normal. Right Atria Right atrial chamber dimension is normal. Atrial Septum Intact interatrial septum visualized by 2D and agitated saline imaging. Agitated saline injection with and without valsalva maneuver opacified right side cardiac chamber without shunt to left side cardiac chambers. Aortic Valve The aortic valve is trileaflet. There is no aortic valve stenosis. There is no aortic valve regurgitation. Pulmonic Valve There is no pulmonic regurgitation. Mitral Valve There is no mitral valve stenosis. There is mild mitral valve regurgitation. Tricuspid Valve There is mild tricuspid valve regurgitation. No pulmonary hypertension, estimated pulmonary arterial systolic pressure is 27 mmHg. Pericardium/Pleural There is no pericardial effusion. Inferior Vena Cava Normal inferior vena cava with >50% collapse upon inspiration consistent with normal right atrial pressure, 5 mmHg. Aorta The aortic root size at the sinus of Valsalva is normal. Left Ventricular Outflow Tract Name Value Normal LVOT Doppler LVOT Peak Velocity 86 cm/s LVOT Peak Gradient 3 mmHg LVOT Mean Gradient 2 mmHg LVOT VTI 18 cm LVOT VTI/AV VTI Ratio 0.7 Pulmonic Valve Name Value Normal PV Doppler PV Peak Velocity 81 cm/s PV Peak Gradient 3 mmHg Mitral Valve Name Value Normal MV Diastolic Function MV E Peak Velocity 67 cm/s MV A Peak Velocity 81 cm/s MV E/A 0.8 MV Decel Time (PW) 272 ms MV Annular TDI MV E/e' (Septal) 8.6 MV E/e' (Lateral) 10.4 MV E/e' (Average) 9.5 Tricuspid Valve Name Value Normal TV Regurgitation Doppler TR Peak Velocity 234 cm/s TR Peak Gradient 18 mmHg Estimated PAP/RSVP RA Pressure 5 mmHg <=5 PA Systolic Pressure 27 mmHg <36 RV Systolic Pressure 27 mmHg <36 TV Annular TDI TV Lateral Kelsey s' Velocity 12.7 cm/s >=9.5 Aorta Name Value Normal Ascending Aorta Ao Root Diameter (MM) 3.1 cm Ao Root Diam Index (MM) 1.7 cm/m2 Aortic Valve Name Value Normal AV Doppler AV Peak Velocity 114 cm/s AV Peak Gradient 5 mmHg AV Mean Gradient 3 mmHg AV VTI 25 cm AV DI (Robby) 0.76 Ventricles Name Value Normal LV Dimensions 2D/MM IVS Diastolic Thickness (2D) 1.1 cm 0.6-1.0 LVID Diastole (2D) 4.6 cm 3.8-5.2 LVIW Diastolic Thickness (2D) 0.9 cm 0.6-0.9 LVID Systole (2D) 3.0 cm 2.2-3.5 LV Mass (2D Cubed) 159.49 g 67.00-162.00 LV Mass Index (2D Cubed) 87 g/m2 43-95 Relative Wall Thickness (2D) 0.40 <=0.42 LV Fractional Shortening/Ejection Fraction 2D/MM LV Fractional Shortening (2D) 33 % 27-45 LV EF (2D Teichholz) 62 % LV Diastolic Volume (4C MOD) 118 ml LV EF (4C MOD) 60 % LV Diastolic Volume (2C MOD) 110 ml LV EF (2C MOD) 60 % LV Diastolic Volume (BP MOD) 120 ml 46-106 LV Diastolic Volume Index (BP MOD) 65 ml/m2 29-61 LV Systolic Volume (BP MOD) 47 ml 14-42 LV Systolic Volume Index (BP MOD) 26 ml/m2 8-24 LV EF (BP MOD) 61 % 54-74 LV Diastolic Length (4C) 7.9 cm LV Systolic Length (4C) 6.7 cm LV Stroke Volume (4C MOD) 70 ml RV Dimensions 2D/MM RVID Diastole (2D) 3.9 cm 2.1-3.5 Atria Name Value Normal LA Dimensions LA Dimension (MM) 2.4 cm 2.7-3.8 LA Volume (4C A-L) 53 ml LA Volume (BP A-L) 49 ml RA Dimensions RA Systolic Major [place] Length (4C) 4.6 cm 2.2-2.8 RA Area (4C) 15.4 cm2 <=18.0 Report Signatures
== END 2024-12-20 09:47 | disposition home or self-care (01) ==
PROVIDERS: PCP Family Medicine; Visit Provider Psychiatry & Neurology Neurology
DX: I35.0 Nonrheumatic aortic (valve) stenosis (principal); I36.1 Nonrheumatic tricuspid (valve) insufficiency; I34.0 Nonrheumatic mitral (valve) insufficiency
CPT/HCPCS: 93306; 96375

== ENCOUNTER 2025-03-10 09:58 | Emergency (ER) | payer OTHER, SELFPAY ==
[2025-03-10 10:09] VITALS: BP 143/92; PULSE 82; RESP 18; TEMP 36.4; O2SAT 99
--- NOTE | 2025-03-10 10:09 | ED.URI ---
HPI - URI/Sore Throat General Chief Complaint: Upper Respiratory Infection Stated Complaint: pink eye/sore throat patient presents to the [facility] with complaints of significant sore throat on the right side significant pain with swallowing and feels like the start a throat abscess which she has had in the past. Patient noted this started last night and also had some redness, irritation, and drainage from the right eye. Patient does wear contact lenses so she took up contact lenses, through them away, and has been wearing her glasses since. Noted this morning did have significant matting and drainage in the right eye. Use a warm compress to clean this away. Sore throat is slightly better today but still has significant pain with swallowing. Denies fever, chills, body aches, headache, nasal congestion, cough, nausea, vomiting, diarrhea. Related Data Home Medications ?Medication ?Instructions ?Recorded ?Confirmed ?Last Taken ?Type sertraline 25 mg tablet 50 mg PO DAILY 01/04/25 01/04/25 Unknown History Allergies Allergy/AdvReac Type Severity Reaction Status Date / Time No Known Allergies Allergy Verified 03/10/25 10:10 Review of Systems Constitutional: Constitutional: Reports as per HPI, Denies chills, Denies fatigue, Denies fever(s) and Denies weakness Eyes: Eyes: Reports as per HPI, Denies change in vision and Denies photophobia Comments: Redness, irritation, drainage to right eye ENT: Reports as per HPI, Denies vertigo, Denies dizziness, Denies nasal congestion and Reports sore throat Cardiovascular: Cardiovascular: Reports no additional cardiovascular complaints Respiratory: Respiratory: Reports as per HPI, Denies chest congestion, Denies cough, Denies dyspnea and Denies wheezing Gastrointestinal: Gastrointestinal: Reports as per HPI, Denies abdominal pain, Denies diarrhea, Denies nausea and Denies vomiting Genitourinary: Genitourinary: Reports no additional female genitourinary complaints Musculoskeletal: Musculoskeletal: Reports as per HPI and Denies back pain Integumentary/Breasts: Skin/Breast: Reports as per HPI, Denies pruritus, Denies erythema, Denies rash and Denies skin ulcer Neurologic: Reports as per HPI, Denies vertigo, Denies dizziness, Denies headache(s) and Denies weakness Psychiatric: Psychiatric: Reports no additional psychiatric complaints Endocrine: Endocrine: Reports no additional endocrine complaints Hematologic/Lymphatic: Hematologic/Lymphatic: Reports no additional hematologic/lymphatic complaints Allergic/Immunologic: Allergic/Immunologic: Reports as per HPI and Reports throat swelling PMFSH Past Medical History Medical History Brain tumor Abnormal MRI Seizure Depression with anxiety Family History Family History Father Cancer CLL, 2020 Mother Skin cancer Sibling Depression Grandparent Heart disease Cerebrovascular accident Hypertension Skin cancer Carcinoma of colon Social History Social History Smoking status: Former smoker Second hand tobacco smoke exposure: No Smoking end date: 04/19/21 Alcohol intake: former Drinks per week: 10 Alcohol use details: wine daily Substance use: former Substance use type: marijuana Do You Feel Safe in your Home?: Yes Lack of Transportation: No Lack of Food: Never True Current Housing: I Have Housing Concerned About Future Housing: No Difficulty Paying Gas/Electric Bills: No Difficulty Paying for Meds: No Living arrangements: alone Gender identity (if verbalized by the patient): Female Sexual Orientation (if Verbalized by the Patient): Straight or Heterosexual Exam Const: General: healthy appearing and no acute distress Nutritional Appearance: well nourished Orientation/consciousness: patient oriented x3 Limitations: no limitations HENMT: Head: normal to inspection Ears: external ears normal and TM's normal bilaterally Face/Nose/Sinus: Normal external nose present and Normal nares present Face and sinus: normal facial exam and sinuses nontender Mouth: Yes Normal oral and palatal mucosa present, Yes lip normal and Yes moist mucous membranes Throat: posterior oropharynx abnormal ( diffuse significant erythema swelling to right side ) Other: no obvious abscess or exudate noted Eyes: Conjunctivae: conjunctival abnormality ( erythema with exudate) right Pupils: Equal, round and reactive pupils present EOM: EOMs intact bilaterally Direct Ophthalmoscopy: photophobia Neck: Neck: normal visual inspection and lymphadenopathy (minimal submandibular ) Resp: Effort & Inspection: normal respiratory effort Auscultation: clear to auscultation bilaterally Cardio: Rate: regular rate Rhythm: regular rhythm Skin: General skin exam: normal color Rashes: no rashes Wounds: no wounds Neuro: General: patient oriented x3 Cranial nerves: Yes Nystagmus not present Speech: normal speech Gait exam (Neuro): Normal gait present Psych: Mental Status: mental status grossly normal Affect: normal affect Attitude: cooperative Course Course Level of Care: Express Care Visit MDM - URI/Sore Throat MDM Narrative Medical decision making narrative: history of peritonsillar abscess. Will place patient on antibiotics and steroids. The patient was evaluated by myself in the express care. History is obtained from patient who is an independent historian and physical exam was performed. Available medical records were reviewed at this time. Exam findings show no acute concerns or changes; patient is non-toxic appearing and is in no distress. Patient is appropriate for outpatient treatment and follow-up. I have evaluated and discussed social determinants of health with the patient that could potentially impact subsequent diagnosis and treatment plans. Differential diagnosis and treatment plan were discussed with the patient. Patient agrees with discussion and after shared medical decision making agrees with plan of care. All questions were answered to the patient's satisfaction. Differential Diagnosis Differential diagnosis: Likely upper respiratory infection, croup, otitis media, sinusitis, bronchitis, influenza and pharyngitis Medical Records Attestation: I reviewed the patient's medical records. Discharge Plan Discharge Clinical Impression: Acute bacterial tonsillitis, Acute conjunctivitis of right eye Patient Disposition: Home Condition: Stable Instructions: Antibiotic Form, Tonsillitis (ED), Conjunctivitis (ED) Additional Instructions: Your exam today shows Conjunctivitis, You have been given a prescription for eye drops. Use the eye drops as instructed. 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 Do not rub the eye or put anything else in the eye, this can cause abrasions (scratches) on the eye or lead to vision loss. Also it is important not to touch the tube or tip of drops to the eye, as this can cause further infection. Wash your hands very well before instilling the medication. Handwashing can help prevent the spread of disease. 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 Do not share drinks. Take Motrin alternating with Tylenol for pain and fever alternating every 4 hours. Increase fluids, avoid caffeine. Follow up with Primary provider if not getting better this week Patient Language: Mohawk Prescriptions: New amoxicillin 875 mg tablet 875 mg PO Q12H Qty: 20 0RF tobramycin 0.3 % drops 1 drp RIGHT EYE Q4H 7 Days Qty: 5 0RF methylprednisolone [Medrol (Jerry)] 4 mg tablets,dose pack See Rx Instructions .ROUTE .COMPLEX Qty: 21 0RF Rx Instructions: for 6 days No Action sertraline 25 mg tablet 50 mg PO DAILY Follow-up/Referrals: Marcelo,MD [place] [Primary Care Provider, Family Practice] Time of Disposition: 10:20
== END 2025-03-10 10:23 | disposition home or self-care (01) ==
PROVIDERS: Emergency Provider Nurse Practitioner Family; PCP Family Medicine
DX: J03.90 Acute tonsillitis, unspecified (principal); H10.31 Unspecified acute conjunctivitis, right eye; F41.9 Anxiety disorder, unspecified; F32.A Depression, unspecified; Z87.891 Personal history of nicotine dependence
CPT/HCPCS: 99213; G0463

== ENCOUNTER 2025-03-21 12:54 | Outpatient (CLI) | payer OTHER, SELFPAY ==
--- NOTE | ~2025-03-21 | MR_ITS ---
EXAMINATION: MR brain/brain stem wo/w con DATE: 03/21/2025 13:54 INDICATION: Benign neoplasm of the meninges TECHNIQUE: Magnetic resonance imaging (MRI) of the brain and brainstem was performed without and with 15 mL Multihance intravenous contrast. Sequences included sagittal and axial T1-weighted SE, axial diffusion-weighted FS SE, axial T2*-weighted GRE, axial T2-weighted FLAIR, and axial T2-weighted FSE. Postcontrast axial, sagittal and coronal T1-weighted SE was obtained. Apparent diffusion coefficient (ADC) maps were created. COMPARISON: 12/06/2024 FINDINGS: There are no areas of restricted diffusion to suggest acute infarction. No intracranial hemorrhage. No interval change in a 6 x 6 x 4 mm extra-axial dural based mass overlying the left frontal lobe consistent with a meningioma. No other abnormal intracranial mass lesion. There is a single unchanged small focus of periventricular white matter T2 hyperintensity near the anterior horn of the left caudate nucleus. The second recent T2 hyperintense lesion in the left temporal lobe seen on the prior coronal T2 FLAIR SEQUENCE remains indiscernible on the axial images. No other T2 hyperintense lesions identified. There are no intraparenchymal signal abnormalities seen on the other pulse sequences. The ventricles are symmetric and normal in size. There are no abnormal extra-axial fluid collections. Flow voids are seen in the cerebral arteries on the T2- weighted sequences consistent with their expected patency. Mild mucosal thickening bilateral ethmoid sinuses. Visualized orbits and soft tissues are unremarkable. There are no other areas of abnormal enhancement on the post contrast images. IMPRESSION: 1. No interval change in a 6 x 6 x 4 mm enhancing extra-axial likely meningioma overlying the left frontal lobe. 2. No change in a single T2 hyperintense periventricular white matter lesion in the left frontal lobe near the head of the caudate nucleus which is within normal limits for age which could be related to a reported history of multiple sclerosis. No new or enlarging white matter lesions to suggest progression of disease. No other acute intracranial process. Reviewed, dictated and finalized at location [facility]. [facility] INTERCEPT TECHNICIAN IMPRESSION: 1. No interval change in a 6 x 6 x 4 mm enhancing extra-axial likely meningioma overlying the left frontal lobe. 2. No change in a single T2 hyperintense periventricular white matter lesion in the left frontal lobe near the head of the caudate nucleus which is within nor mal limits for age which could be related to a reported history of multiple scl erosis. No new or enlarging white matter lesions to suggest progression of dise ase. No other acute intracranial process.
== END 2025-03-21 12:55 | disposition home or self-care (01) ==
LOC: MICIMG 12:55
PROVIDERS: PCP Neurological Surgery; Visit Provider Neurological Surgery
DX: D32.9 Benign neoplasm of meninges, unspecified (principal)
CPT/HCPCS: 70553; A9577